=== PATIENT | male | born 1940 | race Two or more races ===

== ENCOUNTER 2022-01-02 10:51 | Emergency (ER) | payer OTHER ==
[~2022-01-02] VITALS: Ht 180.3 cm; Wt 60.0 kg
[2022-01-02 11:15] VITALS: BP 132/77
== END 2022-01-02 14:13 | disposition left against medical advice (07) ==
LOC: ER 10:51
DX: S41.111A Laceration without foreign body of right upper arm, initial encounter (principal); S51.811A Laceration without foreign body of right forearm, initial encounter; Z53.21 Procedure and treatment not carried out due to patient leaving prior to being seen by health care provider; W11.XXXA Fall on and from ladder, initial encounter; Y93.89 Activity, other specified; Y92.89 Other specified places as the place of occurrence of the external cause; Y99.8 Other external cause status

== ENCOUNTER 2023-06-25 06:58 | Emergency (ER) | payer OTHER ==
[~2023-06-25] VITALS: Ht 172.7 cm; Wt 52.0 kg
[2023-06-25 07:20] VITALS: PULSE 110; RESP 14; O2SAT 98
[2023-06-25 07:46] LABS: Basophils # (auto) 0.1 10 ^3/uL (0-0.2); Basophils % (auto) 0.4 % (0.0-2.0); Eosinophils # (auto) 0.2 10 ^3/uL (0-0.8); Eosinophils % (auto) 1.6 % (0.0-7.0); Hematocrit 34.2 % (41.0-53.0); Hemoglobin 10.9 g/dL (13.5-17.5); Lymphocytes # (auto) 6.5 10 ^3/uL (0.4-5.4); Lymphocytes % (auto) 43.9 % (10.0-50.0); Mean Corpuscular Hemoglobin 34.6 pg (28.0-32.0); Mean Corpuscular Hgb Conc. 31.8 g/dL (32.0-36.0); Mean Corpuscular Volume 108.8 fL (80.0-100.0); Monocytes % (auto) 6.9 % (0.0-12.0); Neutrophils % (auto) 47.2 % (37.0-80.0); Red Blood Cells 3.14 10^6/uL (4.5-5.90); Red Cell Distribution Width 16.8 % (11.8-14.3); White Blood Cell 14.8 10^3/uL (4.4-10.8)
[2023-06-25] MEDS: MIDAZOLAM DRIP 50 mg/50mL 50 ML IV SCH (07:50)
[2023-06-25] MEDS: dilTIAZem 25 MG/5 ML VIAL IV ONE (07:51)
[2023-06-25 07:52] LABS: Alanine Aminotransferase 11 U/L (7-40); Albumin 3.5 g/dL (3.2-4.8); Alkaline Phosphatase 111 U/L (46-116); Anion Gap 10 (5-15); Aspartate Aminotransferase 30 U/L (13-40); BUN/Creatinine Ratio 20.6 (10.0-20.0); Bilirubin, Total 1.2 mg/dL (0.2-1.0); Blood Urea Nitrogen 13 mg/dL (9-23); Calcium 8.4 mg/dL (8.7-10.4); Carbon Dioxide 20 mmol/L (20-30); Chloride 108 mmol/L (98-107); Glucose 171 mg/dL (74-106); Magnesium 1.9 mg/dL (1.6-2.6); Potassium 3.5 mmol/L (3.5-5.1); Sodium 138 mmol/L (136-145); Total Protein 6.5 g/dL (5.7-8.2)
[2023-06-25 07:55] LABS: Urine Bacteria NONE SEEN /hpf (None Seen); Urine Blood TRACE /uL (Negative); Urine Clarity Clear (Clear); Urine Color Colorless (Yellow); Urine Protein, UAD TRACE (Negative); Urine Specific Gravity 1.011 (1.001-1.035); Urine Urobilinogen Normal (Negative); Urine WBC 3 /hpf (0 - 3)
[2023-06-25 07:56] LABS: INR 1.34 (0.9-1.15); Partial Thromboplastin Time 32.5 SEC (24.5-34.5); Prothrombin Time 13.8 sec (9.3-11.8)
[2023-06-25 08:12] LABS: Amphetamine Screen, Urine Neg (NEGATIVE); Barbiturate Scree,Urine Neg (NEGATIVE); Benzodiazephine Screen, Urine Neg (NEGATIVE); Cannabinoid Screen, Urine Pos (NEGATIVE); Cocaine Screen, Urine Neg (NEGATIVE); Opiate Scree,Urine Neg (NEGATIVE); Phencyclidine Screen, Urine Neg (NEGATIVE)
[2023-06-25] MEDS: IOHEXOL 350 MG/ML 100ML IJ ONE (08:25)
[2023-06-25] MEDS: SODIUM CHLORIDE 0.9% 1,000 ML IV ONE (08:31)
[2023-06-25] MEDS: VANCOMYCIN 1GM/200ML 200 ML IV ONE (08:37)
[2023-06-25] MEDS: NOREPINEPHRINE 8 MG/250ML KIT 250 ML IV SCH (08:45)
[2023-06-25] MEDS: NOREPINEPHRINE 8 MG/250ML KIT 250 ML IV ONE (08:54)
[2023-06-25 08:59] LABS: Base Excess -4.9 mmol/L (-2.0-2.0)
[2023-06-25] MEDS: levETIRAcetam 1000 mg/100ml 100 ML IV ONE (09:23)
[2023-06-25] MEDS: PIPERACILLIN-TAZO 4.5GM 100 ML IV ONE (09:50)
[2023-06-25] MEDS: SODIUM CHLORIDE 0.9% 250 ML IV ONE (10:12)
[2023-06-25 10:20] VITALS: BP 52/33; PULSE 109; RESP 14; TEMP 92.8; O2SAT 96
== END 2023-06-25 11:39 | disposition short-term general hospital (02) ==
LOC: ER 06:58 → EDSEX 07:01 → EDBD 07:01 → ER 11:02
DX: T68.XXXA Hypothermia, initial encounter (principal); I46.9 Cardiac arrest, cause unspecified; I61.9 Nontraumatic intracerebral hemorrhage, unspecified; A41.9 Sepsis, unspecified organism; J18.9 Pneumonia, unspecified organism; I11.0 Hypertensive heart disease with heart failure; I50.9 Heart failure, unspecified; E03.9 Hypothyroidism, unspecified; I48.0 Paroxysmal atrial fibrillation; I45.10 Unspecified right bundle-branch block; R07.89 Other chest pain; Z88.7 Allergy status to serum and vaccine
CPT/HCPCS: 31500; 36415; 36600; 70450; 71045; 74177; 80053; 80307; 81001; 82805; 83605; 83735; 83880; 84443; 84484; 85025; 85610; 85730; 87040; 87070; 87077; 87186; 87205; 92950; 93005; 96365; 96367; 96368; 96375; 99291; J1953; J2250; J2543; J3370; J7030; Q9967